=== PATIENT | male | born 1945 | race Caucasian/White ===

== ENCOUNTER 2017-04-20 10:56 | Emergency (ER) | payer MEDICARE, OTHER ==
--- NOTE | 2017-04-20 11:56 | XRAY Preliminary Report ---
Exam: XR Chest 2 View PA/LAT IMPRESSION: 1. Grossly clear lungs. 2. Suspected fracture of the right 11th rib. [facility] SITE ID: [id number]
--- NOTE | 2017-04-20 11:58 | XRAY Report ---
EXAM: CHEST RADIOGRAPHY EXAM DATE: 04/20/2017 11:24 AM. CLINICAL HISTORY: Pain s/p fall. COMPARISON: None available. TECHNIQUE: 2 views. FINDINGS: Lungs/Pleura: No focal opacities evident. No pleural effusion. No pneumothorax. Normal volumes. Mediastinum: Heart and mediastinal contours are unremarkable. Other: There appears to be a linear lucency through the lateral aspect of the right 11th rib. IMPRESSION: 1. Grossly clear lungs. 2. Suspected fracture of the right 11th rib. [facility] Referring Provider Line: [phone] SITE ID: [id number]
--- NOTE | 2017-04-20 12:15 | ED Physician Documentation ---
History of Present Illness - Stated complaint Stated Complaint: SIDE/BACK PX GLF - Chief complaint Chief Complaint: Back Pain - History obtained from History obtained from: Patient - Additonal information Additional information: Patient is a 71-year-old man with a history of type 2 diabetes who is otherwise healthy. Patient had a fall while fishing on Friday. This was in [place]. He fell on a wet deck landing on his right posterior thorax and has had persistent pain in that right posterior side for the past several days. He finally came back into town and wants to have this injury looked at. He denies any head, neck, abdominal, or lower extremity pain or injury. He is breathing comfortably without cough, fever or productive cough. Review of systems: For pertinent positive and negatives in the review of systems please see the history of present illness, otherwise all other systems have been reviewed and are negative. Dragon disclaimer: Parts of this medical record were created using voice recognition technology. Because of the inherent limitations of this system, occasional same sounding word substitutions do occur and persist despite proofreading. Please read the document for context. Review of Systems Constitutional: denies: Fever, Chills Cardiac: reports: Chest pain / pressure. denies: Palpitations, Pedal edema, Calf pain Respiratory: denies: Dyspnea, Cough, Hemoptysis, Wheezing PD PAST MEDICAL HISTORY - Past Medical History Past Medical History: Yes Cardiovascular: Hypertension, High cholesterol - Present Medications Home Medications: Ambulatory Orders Medication Instructions Recorded Confirmed Aspirin 325 mg PO DAILY 04/20/17 04/20/17 Dorzolamide HCl 1 drops EACHEYE DAILY 04/20/17 04/20/17 Losartan Potassium 25 mg PO DAILY 04/20/17 04/20/17 Omeprazole [PriLOSEC] 20 mg PO DAILY 04/20/17 04/20/17 Simvastatin 20 mg PO DAILY 04/20/17 04/20/17 Timolol 0.5% Ophth Drops [Timoptic 0.5 drops EACHEYE DAILY 04/20/17 04/20/17 0.5% Ophth Drops] Tramadol HCl 50 mg PO Q8HR PRN #14 tablet 04/20/17 metFORMIN [Glucophage] 1,000 mg PO BID 04/20/17 04/20/17 - Allergies Allergies/Adverse Reactions: Allergies Allergy/AdvReac Type Severity Reaction Status Date / Time No Known Drug Allergies Allergy Verified 04/20/17 11:03 - Social History Does the pt smoke?: No Smoking Status: Never smoker PD ED PE NORMAL - Vitals Vital signs reviewed: Yes - General General: Alert and oriented X 3, No acute distress, Well developed/nourished - HEENT HEENT: Atraumatic, PERRL - Cardiac Cardiac: RRR, No murmur, No gallop, No rub - Respiratory Respiratory: No respiratory distress, Clear bilaterally, Other (Tender right posterior costal margin approximately rib #11 or 12. No obvious crepitance on exam) - Abdomen Abdomen: Normal bowel sounds - Back Back: No CVA TTP, Other (Mild tenderness off the midline right side adjacent to L3-L4) - Derm Derm: Normal color - Extremities Extremities: No deformity - Neuro Neuro: Alert and oriented X 3, No motor deficit, No sensory deficit - Psych Psych: Normal mood, Normal affect Results - Vitals Vitals: Vital Signs - 24 hr 04/20/17 10:59 Temperature 36.5 C Heart Rate 85 Respiratory 16 Rate Blood Pressure 170/91 H O2 Saturation 100 Oxygen O2 Source Room air PD MEDICAL DECISION MAKING - ED course ED course: Healthy-appearing fit 71-year-old man who has right posterior rib pain and tenderness on examination status post fall on Friday. On pulmonary exam he is clear lungs bilaterally. Is also noted to have a little tenderness adjacent to L3-L4 on the right. Imaging of his chest reveals a possible fracture of rib #11 right side posterior there is no evidence of any pulmonary abnormalities on this x-ray. I also noted on x-ray 2 view of his lumbar spine which is reviewed and appears to be unremarkable. The patient will be discharged home on anti- inflammatories and pain medication. Disposition: To home Clinical impression: 1. Right posterior fracture rib #11 2. Lumbar strain Departure - Departure Disposition: , Self Care Clinical Impression: Rib fracture, Lumbar back pain Instructions: ED Low Back Pain Injury, ED Fx Rib Follow-Up: Tobias Klein MD [Primary Care Provider] - Prescriptions: Tramadol HCl 50 mg PO Q8HR PRN #14 tablet PRN Reason: Pain
[2017-04-20 12:52] VITALS: BP 175/97
--- NOTE | 2017-04-20 13:29 | XRAY Preliminary Report ---
Exam: XR Lumbar Spine 2 View IMPRESSION: Minimal degenerative disk disease L3-L4. [facility] SITE ID: [id number]
--- NOTE | 2017-04-20 13:31 | XRAY Report ---
EXAM: LUMBOSACRAL SPINE RADIOGRAPHY EXAM DATE: 04/20/2017 12:41 PM. CLINICAL HISTORY: Fall, L3 tenderness on the right. COMPARISONS: None. TECHNIQUE: 3 views. FINDINGS: Alignment: Normal. No spondylolisthesis or scoliosis. Bones: Five [id number] lumbar vertebral bodies are present. No fractures or bone lesions. Disks: Minimal L3-L4 osteophytes. Facets: No degenerative changes. Sacroiliac Joints: Unremarkable. Soft Tissues: Moderate amount of stool within the colon. IMPRESSION: Minimal degenerative disk disease L3-L4. [facility] Referring Provider Line: [phone] SITE ID: [id number]
== END 2017-04-20 12:52 | disposition home or self-care (01) ==
LOC: ED 10:56
DX: S22.31XA Fracture of one rib, right side, initial encounter for closed fracture (principal); W01.0XXA Fall on same level from slipping, tripping and stumbling without subsequent striking against object, initial encounter; I10 Essential (primary) hypertension; E11.9 Type 2 diabetes mellitus without complications; M54.5 Low back pain; Z79.84 Long term (current) use of oral hypoglycemic drugs
CPT/HCPCS: 71020; 72100; 99283; 99284

== ENCOUNTER 2017-10-01 10:35 | Outpatient (CLI) | payer MEDICARE, OTHER ==
[2017-10-01] MEDS ORDERED: IOPAMIDOL-300 100 ML VIAL ONE (11:22)
[2017-10-01] MEDS ORDERED: IOPAMIDOL-300 100 ML VIAL IVP ONE (11:54)
--- NOTE | 2017-10-01 13:38 | CT Report ---
DATE OF SERVICE: 10/01/2017 CT IVP: 10/01/2017 CLINICAL INDICATION: Hematuria, history of stone. COMPARISON: 02/16/2009 TECHNIQUE: Axial CT images of the abdomen and pelvis were obtained prior to and following 100 mL Isovue 300 intravenously, using split bolus technique. FINDINGS: Limited evaluation of the lung bases is unremarkable. ABDOMEN: On the unenhanced images, there is a 5 mm calculus in the lower pole collecting system of the left kidney, without evidence of hydronephrosis. The kidneys demonstrate symmetric uptake and excretion of contrast. No hydroureter or ureterolithiasis is appreciated. The liver, spleen, pancreas and adrenal glands are unremarkable. The gallbladder is not dilated. No bowel dilatation, free gas, or free fluid is present. No abdominal adenopathy is seen. PELVIS: The distal ureters and urinary bladder appear unremarkable. No pelvic adenopathy or free fluid is present. Osseous structures demonstrate degenerative changes and remote fractures of the right transverse processes of L2, L3, and L4. IMPRESSION: A 5 MM CALCULUS IN THE LOWER POLE COLLECTING SYSTEM OF THE LEFT KIDNEY. NO EVIDENCE OF HYDRONEPHROSIS OR HYDROURETER. In accordance with CT protocol optimization, one or more of the following dose reduction techniques were utilized for this exam: automated exposure control, adjustment of mA and/or KV based on patient size, or use of iterative reconstructive technique. TD: 10/01/2017 14:37
== END 2017-10-01 10:36 | disposition home or self-care (01) ==
LOC: DI 10:35
PROVIDERS: ATTEND Family Medicine
DX: N20.0 Calculus of kidney (principal)
CPT/HCPCS: 74178; Q9967

== ENCOUNTER 2019-06-08 13:24 | Outpatient (CLI) | payer MEDICARE, OTHER ==
[2019-06-08 18:59] LABS: BASOPHILS # (AUTO) 0.1 10^3/uL (0.0-0.1); BASOPHILS % (AUTO) 0.7 %; EOSINOPHILS # (AUTO) 0.2 10^3/uL (0.0-0.7); EOSINOPHILS % (AUTO) 2.3 %; HGB - HEMOGLOBIN 13.9 g/dL (14.0-18.0); LYMPHOCYTES # (AUTO) 1.2 10^3/uL (1.5-3.5); LYMPHOCYTES % (AUTO) 12.4 %; MEAN CORPUSCULAR HEMOGLOBIN 29.8 pg (27.0-31.0); MEAN CORPUSCULAR HGB CONC 35.9 g/dL (32.0-36.0); MEAN PLATELET VOLUME 11.6 fL (7.4-11.4); MONOCYTES # (AUTO) 0.9 10^3/uL (0.0-1.0); MONOCYTES % (AUTO) 9.8 %; NEUTROPHILS % (AUTO) 73.7 %; PLT - PLATELET COUNT 402 10^3/uL (130-450); RED BLOOD COUNT 4.66 10^6/uL (4.70-6.10); WHITE BLOOD COUNT 9.5 x10^3/uL (4.8-10.8)
[2019-06-08 19:31] LABS: ALBUMIN 3.6 g/dL (3.2-5.5); ALBUMIN/GLOBULIN RATIO 1.1 (1.0-2.2); BILIRUBIN,TOTAL 17.2 mg/dL (0.2-1.0); CALCIUM 9.4 mg/dL (8.5-10.3); CREATININE 0.8 mg/dL (0.6-1.2)
== END 2019-06-08 23:59 | disposition home or self-care (01) ==
LOC: LAB.WCP 13:24
PROVIDERS: ATTEND Family Medicine
DX: C24.9 Malignant neoplasm of biliary tract, unspecified (principal)
CPT/HCPCS: 36415; 80053; 85025

== ENCOUNTER 2019-09-06 08:00 | Outpatient (CLI) | payer MEDICARE, OTHER | END 2019-09-06 23:59 | disposition home or self-care (01) | LOC: LAB.R 08:00 | PROVIDERS: ATTEND Nurse Practitioner Family | DX: R05 Cough (principal) | CPT/HCPCS: 87275; 87276 ==

== ENCOUNTER 2019-09-06 10:41 | Outpatient (CLI) | payer MEDICARE, OTHER ==
--- NOTE | 2019-09-06 14:42 | XRAY Report ---
Reason: COUGH Procedure Date: 09/06/2019 Accession Number: [id number] / [id number] Procedure: WCP - Chest 2 View X-Ray CPT Code: 43330 Final Report FULL RESULT: EXAM: CHEST RADIOGRAPHY EXAM DATE: 09/06/2019 10:41 AM. CLINICAL HISTORY: Cough and congestion for 4 days. Patient is receiving chemotherapy. COMPARISON: CHEST 2 VIEW 10/06/2017 2:20 PM. TECHNIQUE: 2 views. FINDINGS: Lungs/Pleura: No focal opacities evident. No pleural effusion. No pneumothorax. Normal volumes. Mediastinum: Accounting for differences in technique, stable cardiomediastinal silhouette which is not enlarged with redemonstration of calcifications of the aortic arch. Other: None. IMPRESSION: No acute cardiopulmonary abnormality. [facility]
== END 2019-09-06 23:59 | disposition home or self-care (01) ==
LOC: DI.WCP 10:41
PROVIDERS: ATTEND Nurse Practitioner Family
DX: R05 Cough (principal)
CPT/HCPCS: 71046

== ENCOUNTER 2020-05-08 08:00 | Outpatient (CLI) | payer MEDICARE, OTHER ==
[2020-05-08 12:09] LABS: CREATININE,URINE 143.9 mg/dL; MICROALBUM/CREATININE RATIO,UR 391.9 ug/mg (<30.0); MICROALBUMIN,URINE 56.4 mg/dL (0-300.0)
[2020-05-08 12:21] LABS: HEMOGLOBIN A1c% 6.7 % (4.27-6.07)
[2020-05-08 12:23] LABS: ALBUMIN 4.3 g/dL (3.2-5.5); ALBUMIN/GLOBULIN RATIO 1.6 (1.0-2.2); BILIRUBIN,TOTAL 0.9 mg/dL (0.2-1.0); CALCIUM 9.2 mg/dL (8.5-10.3); CREATININE 1.1 mg/dL (0.6-1.2)
== END 2020-05-08 23:59 | disposition home or self-care (01) ==
LOC: LAB.WCP 08:00
PROVIDERS: ATTEND Family Medicine
DX: E11.9 Type 2 diabetes mellitus without complications (principal); I10 Essential (primary) hypertension; E78.5 Hyperlipidemia, unspecified
CPT/HCPCS: 36415; 80053; 82043; 82570; 83036